=== PATIENT | female | born 1980 | race Caucasian/White ===

== ENCOUNTER 2017-08-13 09:35 | Inpatient (IN) | payer OTHER ==
[2017-08-13] MEDS ORDERED: Penicillin G Potassium IV* 5,000,000 UNITS in NS 0.9% 100 ML* 100 ML IVPB ONE (10:30)
[2017-08-13 10:43] LABS: ABS Basophils 0 10^3/ul (0-0.2); ABS Eosinophils 0 10^3/ul (0-0.6); ABS Lymphocytes 1.5 10^3/ul (1.0-4.8); ABS Monocytes 0.7 10^3/ul (0-0.8); ABS Nucleated RBC 0 10^3/ul; Eosinophil % 0.1 % (0-6); Hematocrit 39 % (35-47); Hemoglobin 13.2 g/dl (12.0-16.0); Lymphocyte % 11.5 % (25-47); Mean Corpuscular HGB Conc 34 g/dl (31-36); Mean Corpuscular Hemoglobin 30 pg (27-31); Mean Corpuscular Volume 86 fL (80-97); Mean Platelet Volume 7.7 um3 (7.4-10.4); Nucleated Red Blood Cells % 0; Platelet Count 205 10^3/ul (150-450); Red Blood Count 4.47 10^6/ul (4.0-5.4); Red Cell Distribution Width 14 % (10.5-15); White Blood Count 13.3 10^3/ul (3.5-10.8)
--- NOTE | 2017-08-13 11:43 | HP ---
General Information - General Information Maternal Age: 37 Grav: 2 Para: 1 SAB: 0 IEA: 0 Estimated Due Date: 08/09/17 Determined By: LMP Gestational Age in Weeks and Days: 40 Weeks and 4 Days Maternal Blood Type and Rh: AB Positive - Results this Serology/RPR Result: Non-Reactive Rubella Result: Immune HBsAg Result: Negative HIV Result: Negative GBS Culture Result: Positive Past Medical History Delivery History: Hx Uncomplicated Vaginal Delivery Pertinent Past Medical History: Non-Contributory Past Medical History Comment: migraine Past Surgical History Comment: Adenoidectomy, 1984 Pertinent Family History: See Records - Antepartal Records Antepartal Records: Reviewed, Complicated by: - advanced maternal age. NIPT/MSAFP normal Review of Systems Constitutional: Comfortable CV Complaint: No Respiratory: Shortness of Breath: No Genitourinary: No Leaking Fluid Musculoskeletal: Contractions Neurological: No Headache Movement: Normal - Comments soft stool this morning Exam Allergies/Adverse Reactions: Allergies No Known Allergies Allergy (Verified 12/31/14 07:48) Lab Values - Entire Visit: Laboratory Tests 08/13/17 08/13/17 10:20 10:20 WBC 13.3 H RBC 4.47 Hgb 13.2 Hct 39 MCV 86 MCH 30 MCHC 34 RDW 14 Plt Count 205 MPV 7.7 Neut % (Auto) 82.8 Lymph % (Auto) 11.5 L [place] % (Auto) 5.2 Eos % (Auto) 0.1 Baso % (Auto) 0.4 Absolute Neuts (auto) 11.0 H Absolute Lymphs (auto) 1.5 Absolute Monos (auto) 0.7 Absolute Eos (auto) 0 Absolute Basos (auto) 0 Absolute Nucleated RBC 0 Nucleated RBC % 0 Blood Type AB Positive - Measurements Height: 5 ft 3 in Weight: 163 lb Weight in lbs: 163 Body Mass Index (BMI): 28.8 Pre- Weight: 130 lb Weight Gained This : 33 lbs and 0 ozs - Exam Breast: - - soft, no masses Extremities: No Edema Heart: Normal Rhythm/Heart Sounds HEENT: No Significant Findings Lungs: Clear Bilaterally Reflexes: DTR 2+ Thyroid: No Thyromegaly - Cervical Exam 7cm, 100%, vtx -2, bulging membranes - Abdominal Exam Abdomen Exam: Fundal Height Consistent with Dates Abdomen Exam Comment: EFW 7.5 lbs - Membranes Membrane Status: Intact - Ultrasound/Biophysical Profile Ultrasound Status: Not Done EFM Findings - External Monitor Findings Baseline Heart Rate: 150 External Monitor Findings: Accelerations Present, Variability Moderate External Monitor Findings Comment: category 1 Contractions: Regular - every 4-5 minutes, Moderate, 45-90 Seconds Assessment/Plan - Reason for Visit Reason for Visit: labor - Obstetrical Risk Factors Obstetrical Risk Factors: GBS Positive Risk Factors Comment: age 37 - Plan Plan: Active Labor Plan Comment: pt admitted will begin PCN prophylaxis Anticipate vaginal delivery - Date/Time of Admission Date of Admission: 08/13/17 Time of Admission: 10:15
[2017-08-13] MEDS ORDERED: Oxytocin in LR* 20 UNITS/1,000 ML BAG IVPB ONE (12:43)
[2017-08-13] MEDS ORDERED: Dibucaine 1% 28.35 GM TUBE PR PRN (12:55)
[2017-08-13] MEDS ORDERED: Ibuprofen TAB* 600 MG PO PRN (12:55)
[2017-08-13] MEDS ORDERED: Acetaminophen TAB* 325 MG PO PRN (12:55)
[2017-08-13] MEDS ORDERED: Witch Hazel PAD* JAR TOPICAL PRN (12:55)
[2017-08-13] MEDS ORDERED: Glycerin ADULT SUPP PR PRN (12:55)
[2017-08-13] MEDS ORDERED: Oxytocin in LR* 20 UNITS/1,000 ML BAG IVPB SCH (13:00)
--- NOTE | 2017-08-13 13:05 | PN ---
Progress Note - Progress Note Date of Service: 08/13/17 - Delivery note Note: Pt in tub. SROM with immediate urge to push at approx 1234. When Monserrat Castillo RN arrived, baby , delivered immediately at 1235. I arrived just after baby born, pink, vigourous, being held by her mother in tub. Cord clamped, cut by father. Baby to warmer. Mother assisted to bed. Placenta delivered Karen at 1241. Decreased uterine tone, massaged, IV with pitocin running. Small perineal abrasion, not repaired. EBL 200cc. Mother/baby stable, initiated. Apgars 9/9
[2017-08-13] MEDS: Docusate CAP* 100 MG PO SCH ×2 (13:48→20:49)
[2017-08-13] MEDS ORDERED: Penicillin G Potassium IV* 2,500,000 UNITS in NS 0.9% 100 ML* 100 ML IVPB SCH (14:30)
[2017-08-14 06:47] LABS: Hematocrit 34 % (35-47); Hemoglobin 11.8 g/dl (12.0-16.0); Mean Corpuscular HGB Conc 35 g/dl (31-36); Mean Corpuscular Hemoglobin 30 pg (27-31); Mean Corpuscular Volume 86 fL (80-97); Mean Platelet Volume 7.4 um3 (7.4-10.4); Platelet Count 198 10^3/ul (150-450); Red Blood Count 3.96 10^6/ul (4.0-5.4); Red Cell Distribution Width 14 % (10.5-15); White Blood Count 12.4 10^3/ul (3.5-10.8)
[2017-08-14] MEDS ORDERED: Ferrous Gluconate TAB* 324 MG TAB PO SCH (09:00)
[2017-08-14] MEDS: Docusate CAP* 100 MG PO SCH (09:21)
[2017-08-14 13:07] VITALS: BP 135/86
== END 2017-08-14 16:15 | disposition home or self-care (01) | DRG 775 ==
LOC: MCHOBOUT 09:35 → MCHOB 10:05
PROVIDERS: ADMIT Midwife; ATTEND Midwife
PROC: 10E0XZZ Delivery of Products of Conception, External Approach (ICD-10-PCS; principal; 2017-08-13)
PROC: 4A1HX4Z Monitoring of Products of Conception, Cardiac Electrical Activity, External Approach (ICD-10-PCS; 2017-08-13)
DX: O48.0 Post-term pregnancy (principal); O99.824 Streptococcus B carrier state complicating childbirth; Z37.0 Single live birth; Z3A.40 40 weeks gestation of pregnancy; O71.82 Other specified trauma to perineum and vulva
CPT/HCPCS: 36415; 85025; 85027; 86850; 86900; 86901; J2540